=== PATIENT | male | born 2000 | race Caucasian/White ===

== ENCOUNTER 2020-06-19 10:00 | Outpatient (RCR) | payer OTHER, SELFPAY ==
--- NOTE | 2020-05-07 17:17 | MHC.PT.EP ---
[facility] [place] [facility] [place] [facility] [place] [facility] [address] Heather Reyna [address] [phone] F: [phone] F: [phone] F: [phone] F: [phone] Physical Therapy Plan of Care Date of Evaluation: 05/07/20 Date of Surgery: NA Diagnosis: Muscle strain Assessment: 20 year old male referred for muscle strain . Pt reports of having pain in low back for over a year and upper back for last 6 months. He reports of having more pain in low back. Pt reports of having constant discomfort in low back region. Examination reveals 0/10 pain with supine lying and 6/10 pain with lifting heavy weights, prolonged sitting and awkward backward bending posture for work, pain with lumbar flexion and extension, decreased muscle strength and altered posture. Repeated motion testing done- no change in symptoms noted with extensions, increase in symptoms with flexion. Pt is independent with most ADLS. He requires help with lifting heavy weight. 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 He is a good candidate for PT based on age, goals, physical impairments and functional limitations. He would benefit from PT to decrease pain, improve ROM, increase muscle strength, postural correction and functional training. Frequency and Duration: The patient will be seen 2/week for 5 weeks Short Term Goals: 1. Pt will have 50% decrease in pain in 2 weeks. 2. Pt will be able to move trunk through all planes of motion without pain in 3 weeks. Film Producer Goals: 1. Pt will be able to perform all ADLS without pain in 4 weeks. 2. Pt will return to PLOF in 5 weeks Treatment Plan: Modalities to reduce pain, spasms and effusion. Manual therapy to restore motion and function. Therapeutic exercise to improve strength and flexibility. Neuromuscular re-education for posture and balance. Therapeutic activities to return to functional activities of daily living. Please sign and return to therapist. Thank you for your referral.
--- NOTE | 2020-07-04 11:24 | MHC.PT.DC ---
[facility] [place] Office [place] Office [place] Office [address] Heather Reyna [address] [phone] F: [phone] F: [phone] F: [phone] F: [phone] Physical Therapy Discharge Report Diagnosis: Muscle strain Date of Surgery: NA Date of Evaluation: 05/07/20 Date of Discharge: 07/04/20 Treatments to Date: 7 Cancellations to Date: 0 No Shows to Date: 0 Discharge Status: Achieved Goals Improved Function Discharge Summary: Pt arrived with no reports of pain. He has improved and is independent with all HEPS. Pt therefore d/c from therapy Electronically signed by: Patricia Garcia DPT Please sign and return to therapist. Thank you for your referral.
== END 2020-07-04 11:26 | disposition other institution (70) ==
LOC: HO.PT 10:00
PROVIDERS: PCP Family Medicine; Visit Provider Family Medicine
DX: S16.1XXD Strain of muscle, fascia and tendon at neck level, subsequent encounter (principal); S39.012D Strain of muscle, fascia and tendon of lower back, subsequent encounter; S29.012D Strain of muscle and tendon of back wall of thorax, subsequent encounter
CPT/HCPCS: 97110; 97112; 97140; 97161; 97530

== ENCOUNTER 2021-12-03 11:37 | Outpatient (REF) | payer OTHER, SELFPAY ==
[2021-12-03 16:30] LABS: CT PCR NOT DETECTED (Not Detect.); NG PCR NOT DETECTED (Not Detect.)
[2021-12-04 07:45] LABS: HBS Num1 12.12 mIU/mL (0-7.99); HBc Num1 0.12 S/CO (0.00-0.79); HBsAGNum1 0.29 S/CO (0.00-0.99); HIV AB/AG Nonreactive (Nonreactive); HIV Num 1 0.06 S/CO (0.00-0.99); Hepatitis B Core Antibody Nonreactive (Nonreactive); Hepatitis B Surface Antigen Negative (Negative); ~Hepatitis B Surface Antibody REACTIVE (Nonreactive); ~Hepatitis C Antibody Nonreactive (Nonreactive)
[2021-12-04 08:19] LABS: Syphilis Screen Nonreactive (Nonreactive)
== END 2021-12-03 11:38 | disposition home or self-care (01) ==
LOC: HO.WFDLDS 11:37
PROVIDERS: Visit Provider Family Medicine
DX: Z11.3 Encounter for screening for infections with a predominantly sexual mode of transmission (principal); Z11.4 Encounter for screening for human immunodeficiency virus [HIV]
CPT/HCPCS: 36415; 86704; 86706; 86780; 86803; 87340; 87389; 87491; 87591